=== PATIENT | male | born 1985 | race Two or more races ===

== ENCOUNTER 2024-08-11 08:40 | Emergency (ER) | payer OTHER ==
[~2024-08-11] VITALS: Ht 185.4 cm; Wt 86.2 kg
[2024-08-11 08:50] VITALS: PULSE 74; RESP 15; TEMP 97.7; O2SAT 100
[2024-08-11] MEDS ORDERED: METHOCARBAMOL750 MG PO (09:05)
== END 2024-08-11 09:50 | disposition home or self-care (01) ==
LOC: ER 08:58
DX: M54.2 Cervicalgia (principal); S16.1XXA Strain of muscle, fascia and tendon at neck level, initial encounter; X50.1XXA Overexertion from prolonged static or awkward postures, initial encounter; Y92.89 Other specified places as the place of occurrence of the external cause; F17.210 Nicotine dependence, cigarettes, uncomplicated
CPT/HCPCS: 99282